=== PATIENT | male | born 1955 | race Caucasian/White ===

== ENCOUNTER 2025-03-28 16:47 | Inpatient (IN) | payer OTHER ==
[~2025-03-28] VITALS: Ht 182.9 cm; Wt 85.9 kg
[2025-03-28 17:44] LABS: Basophils # (auto) 0 10 ^3/uL (0-0.2); Basophils % (auto) 0.4 % (0.0-2.0); Eosinophils # (auto) 0 10 ^3/uL (0-0.8); Eosinophils % (auto) 0.2 % (0.0-7.0); Hematocrit 41.3 % (41.0-53.0); Lymphocytes # (auto) 0.8 10 ^3/uL (0.4-5.4); Lymphocytes % (auto) 6.9 % (10.0-50.0); Mean Corpuscular Hemoglobin 30.8 pg (28.0-32.0); Mean Corpuscular Hgb Conc. 33.9 g/dL (32.0-36.0); Monocytes # (auto) 0.7 10 ^3/uL (0-1.3); Monocytes % (auto) 5.9 % (0.0-12.0); Neutrophils # (auto) 9.9 10 ^3/uL (1.6-8.6); Neutrophils % (auto) 86.6 % (37.0-80.0); Platelet Count (auto) 183 10^3/uL (140-450); Red Blood Cells 4.54 10^6/uL (4.5-5.90); Red Cell Distribution Width 13.5 % (11.8-14.3); White Blood Cell 11.5 10^3/uL (4.4-10.8)
[2025-03-28 17:49] LABS: Anion Gap 8 (5-15); Calcium 9.7 mg/dL (8.7-10.4); Carbon Dioxide 26 mmol/L (20-31)
[2025-03-28 17:54] LABS: BUN/Creatinine Ratio 11.3 (10.0-20.0); Blood Urea Nitrogen 20 mg/dL (9-23); Chloride 113 mmol/L (98-107); Glucose 131 mg/dL (74-106); Potassium 5.1 mmol/L (3.5-5.1); Sodium 147 mmol/L (136-145)
--- NOTE | 2025-03-28 18:37 | DVH ---
EXAM: CT HEAD WITHOUT CONTRAST INDICATION: aloc EXAM DATE: 03/28/2025 05:57 PM COMPARISON: None TECHNIQUE: CT of the head without intravenous contrast. Radiation Dose Information: CTDI volume is 64.93 mGy. Dose-length product is 1040.66 mGy*cm FINDINGS: There is no evidence of acute intracranial hemorrhage, extra-axial collection, mass effect, midline s hift, herniation or hydrocephalus. The ventricles, sulci and cisterns are age appropriate. The gracia-w cody differentiation is intact. The visualized paranasal sinuses and mastoid air cells are clear. The surrounding soft tissues and osseous structures are unremarkable. IMPRESSION: 1. No evidence of acute intracranial hemorrhage, mass effect or hydrocephalus.
--- NOTE | 2025-03-28 19:44 | ED.PDOC ---
History of Present Illness HPI Comments This is a 69-year-old male who comes in with chief complaint of a syncopal episode. The patient wandered from his house and was found laying down in a neighbor's driveway. According to the neighbors, the patient may have been laying there for approximately 2 hours in the heat. He denies any chest pain, nausea, vomiting or shortness for breath. He just states that he is now feeling very weak and very hot. It is questionable if the patient has suffered head trauma but he does have abrasions to the forehead region. An IV Hep-Lock was established EN route. The patient was given normal saline because the patient's blood pressure was 80 systolic. EN route the patient was given a 1 L bolus of normal saline which brought the blood pressure to 101/73 Chief Complaint: Syncope Time Seen by MD: 16:51 Reviewed Notes: Nurses Notes, Shipfitters Supervisor Notes, Medications, Allergies (No all ergies to medications) Allergies: Coded Allergies: NO KNOWN ALLERGIES (Unverified , 03/28/25) Information Source: Patient, Emergency Med Personnel Mode of Arrival: EMS Severity: Moderate Timing: Hours Duration: Since onset Prehospital treatment: Accucheck (181), Telephone Worker, IVF Past Medical History PAST MEDICAL HISTORY: Cancer (Previous prostate cancer), Dementia Surgical History: Denies all surgeries Surgical History (Other): Hip surgery, prostate surgery, cataract surgery Family History Family History: No family hx of Cancer, No family hx of DM, No family hx of Heart mercedes Social History Smoker: Non-Smoker Alcohol: Denies ETOH Use Drugs: Denies Drug Use Lives In: Home Constitutional: reports: weakness, others (Hot to touch); denies: chills, diaphoresis, fatigue, fever, malaise, sweats EENTM: denies: blurred vision, double vision, ear bleeding, ear discharge, ear drainage, ear pain, ear ringing, eye pain, eye redness, hearing loss, mouth pain, mouth swelling, nasal discharge, nose bleeding, nose congestion, nose pain, photophobia, tearing, throat pain, throat swelling, voice changes, others Respiratory: denies: cough, hemoptysis, orthopnea, SOB at rest, shortness of breath, SOB with excertion, stridor, wheezing, others Cardiovascular: reports: syncope; denies: chest pain, dizzy spells, diaphoresis, Dyspnea on exertion, edema, irregular heart beat, left arm pain, lightheadedness, palpitations, PND, others Gastrointestinal: denies: abdomen distended, abdominal pain, blood streaked bowels, constipated, diarrhea, dysphagia, difficulty swallowing, hematemesis, melena, nausea, poor appetite, poor fluid intake, rectal bleeding, rectal pain, vomiting, others Genitourinary: denies: burning, dysuria, flank pain, frequency, hematuria, incontinence, penile discharge, penile sore, pain, testicle pain, testicle swelling, urgency, others Neurological: denies: dizziness, fainting, headache, left sided numbness, left sided weakness, numbness, paresthesia, pre-existing deficit, right sided numbness, right sided weakness, seizure, speech problems, tingling, tremors, weakness, others Musculoskeletal: denies: back pain, gout, joint pain, joint swelling, muscle pain, muscle stiffness, neck pain, others Integumetry: denies: bruises, change in color, change in hair/nails, dryness, laceration, lesions, lumps, rash, wounds, others Allergic/Immunocompromised: denies: Difficulty Healing, Frequent Infections, Hives, Itching, others Hematologic/Lymphatic: denies: anemia, blood clots, easy bleeding, easy bruising, swollen glands, others Endocrine: denies: excessive hunger, excessive sweating, excessive thirst, excessive urination, flushing, intolerance to cold, intolerance to heat, unexplained weight gain, unexplained weight loss, others Psychiatric: denies: anxiety, bipolar disorder, depression, hopeless, panic disorder, schizophrenia, sleepless, suicidal, others Physical Exam General Appearance: Moderate Distress HEENT: Normal ENT Inspection, Pharynx Normal, TMs Normal Neck: Full Range of Motion, Non-Tender, Normal, Normal Inspection Respiratory: Chest Non-Tender, Lungs Clear, No Accessory Muscle Use, No Respira tory Distress, Normal Breath Sounds Cardiovascular: No Edema, No JVD, No Murmur, No Gallop, Normal Peripheral Pulses, Tachycardia Breast Exam: Deferred Gastrointestinal: No Organomegaly, Non Tender, No Pulsatile Mass, Normal Bowel Sounds, Soft Genitalia: Deferred Pelvic: Deferred Rectal: Deferred Extremities: No calf tenderness, Normal capillary refill, Normal inspection, Normal range of motion, Non-tender, No pedal edema Musculoskeletal : Apperance: Normal Neurologic: Alert, freight flow sales leader II-XII nml as Tested, Motor Weakness, Normal Affect, Normal Mood, No Sensory Deficits Cerebellar Function: Unable to Test Reflexes: Normal Skin: Dry, Normal Color, Warm Lymphatic: No Adenopathy Was a procedure done? Was a procedure done?: No Differential Dx Considerations may include: Dehydration heat exhaustion, and stroke, electrolyte imbalance, generalized weakness X-Ray, Labs, Meds, VS Vital Signs Date Time Temp Pulse Resp B/P (MAP) Pulse Ox O2 Delivery O2 Flow Rate FiO2 03/28/25 17:08 98.5 102 18 101/73 (82) 96 98.5 Lab Test 03/28/25 17:23 Range/Units White Blood Count 11.5 H 4.4-10.8 10^3/uL Red Blood Count 4.54 4.5-5.90 10^6/uL Hemoglobin 14.0 13.5-17.5 g/dL Hematocrit 41.3 41.0-53.0 % Mean Corpuscular Volume 91.0 80.0-100.0 fL Mean Corpuscular Hemoglobin 30.8 28.0-32.0 pg Mean Corpuscular Hemoglobin Concent 33.9 32.0-36.0 g/dL Red Cell Distribution Width 13.5 11.8-14.3 % Platelet Count 183 140-450 10^3/uL Mean Platelet Volume 8.6 6.9-10.8 fL Neutrophils (%) (Auto) 86.6 H 37.0-80.0 % Lymphocytes (%) (Auto) 6.9 L 10.0-50.0 % Monocytes (%) (Auto) 5.9 0.0-12.0 % Eosinophils (%) (Auto) 0.2 0.0-7.0 % Basophils (%) (Auto) 0.4 0.0-2.0 % Neutrophils # (Auto) 9.9 H 1.6-8.6 10 ^3/uL Lymphocytes # (Auto) 0.8 0.4-5.4 10 ^3/uL Monocytes # (Auto) 0.7 0-1.3 10 ^3/uL Eosinophils # (Auto) 0 0-0.8 10 ^3/uL Basophils # (Auto) 0 0-0.2 10 ^3/uL Nucleated Red Blood Cells 0.0 % Sodium Level 147 H 136-145 mmol/L Potassium Level 5.1 3.5-5.1 mmol/L Chloride Level 113 H 98-107 mmol/L Carbon Dioxide Level 26 20-31 mmol/L Anion Gap 8 5-15 Blood Urea Nitrogen 20 9-23 mg/dL Creatinine 1.77 H 0.700-1.30 mg/dL Glomerular Filtration Rate Calc 41 >90 mL/min BUN/Creatinine Ratio 11.3 10.0-20.0 Serum Glucose 131 H 74-106 mg/dL Calcium Level 9.7 8.7-10.4 mg/dL Creatine Kinase MB Pending The patient's CBC shows an elevated white blood cell count 11.5 The rest of the CBC is within normal limits The chemistry panel is within normal limits. The patient continues to be somewhat dehydrated The patient is being admitted with a diagnosis of exhaustion and dehydration The CAT scan of the head shows: No sign of any abnormalities The patient is being admitted Images Reviewed?: Images reviewed and evaluated by me Time of 1ST Reevaluation: 19:41 Reevaluation 1ST: Unchanged Patient Education/Counseling: Diagnosis, Treatment, Prognosis Family Education/Counseling: No Family Present Departure 1 Departure Time of Disposition: 19:42 Impression: Primary Impression: Heat exhaustion Qualified Codes: T67.5XXA - Heat exhaustion, unspecified, initial encounter Additional Impressions: Episode of syncope Qualified Codes: R55 - Syncope and collapse Autonomic dysfunction Disposition: 09 ADMITTED INPATIENT Admit to: [facility] Condition: Fair Critical Care Note Critical Care Time?: Yes (45 min-critical care time only) Stability Stability form required: Yes Unstable for transfer: Telemetry monitoring (Telemetry monitoring required), ED Physician Assesment (Clinical assesment) Heart Score Heart Score: Heart Score Response (Comments) Value History N/A 0 EKG N/A 0 Age N/A 0 Risk Factors N/A 0 Troponin N/A 0 Total 0 KORINA BOYLE MD March 28, 2025 19:44
[2025-03-28] MEDS ORDERED: ACETAMINOPHEN 325 MG TAB PO PRN (21:00)
[2025-03-28] MEDS ORDERED: DOCUSATE SOD 100 MG CAP PO PRN (21:00)
--- NOTE | 2025-03-28 21:11 | DVHHP2 ---
History of Present Illness History of Present Illness Patient is 69 years old male with past medical history of carcinoma of the prostate status post prostatectomy was brought in due to syncope. Patient was brought in by EMS after he was found lying down of the neighbor's driveway likely for 2 hours. Patient's blood pressure was found systolic around 80s, patient was given normal saline 1 L IV. Patient denied any nausea or vomiting or dizziness before syncope. Also denied post syncopal bladder and bowel incontinence. As per patient's brother Emmanuel Sharif- [phone] patient has been forgetful lately, can not get back to his home once he is in the away from home. Patient recently had right upper eyelid ptosis, went to [facility], CT angio head and neck was negative. CT scan of the chest, abdomen and pelvis was negative. Patient Denied any chest pain, shortness of breath, dysuria, acute joint pain or swelling, dysarthria or change in vision. Initial lab workup revealed leukocytosis with WBC 11.5, neutrophil 86%, sodium 147, potassium 5.1, serum creatinine 1.77, GFR 41, BUN 20. CT head negative for acute intracranial abnormality. Past Medical History Carcinoma of the prostate Past Surgical History Prostatectomy Family History Dad had Alzheimer's disease, prostate problem Past Social History Patient lives alone, denies smoking/alcoholism/drug abuse Review of Systems Review of Systems Allergy- NKDA Patient was seen today at the bedside. Cardiovascular- deny acute chest pain or shortness of breath or cough or palpitation Respiratory denies cough or short of breath or wheezing Gastrointestinal- denies any rectal bleeding, nausea or vomiting Musculoskeletal-denies acute joint swelling or tenderness or redness Neurological- denies acute dysarthria, dysphagia, change in vision Psychiatry- denies depression or SI or HI Skin- denies acute rash or purpura Allergies: Coded Allergies: NO KNOWN ALLERGIES (Unverified , 03/28/25) Medications Current Medications Medications Dose Ordered Sig/Marie Route Start Time Stop Time Status Last Admin Dose Admin Sodium Chloride 10 ml Q8HR IV 03/28/25 22:00 Sodium Chloride 1,000 ml @ 120 mls/hr Q8H20M IV 03/28/25 21:00 Docusate Sodium 100 mg BIDPRN PRN PO 03/28/25 21:00 Enoxaparin Sodium 40 mg DAILY SC 03/29/25 10:00 Acetaminophen 650 mg Q6HP PRN PO 03/28/25 21:00 Atorvastatin Calcium 20 mg HS PO 03/29/25 22:00 Pantoprazole Sodium 40 mg DAILY@0600 PO 03/29/25 06:00 Exam Vital Signs Vital Signs Date Time Temp Pulse Resp B/P (MAP) Pulse Ox O2 Delivery O2 Flow Rate FiO2 03/28/25 17:08 98.5 102 18 101/73 (82) 96 98.5 Exam General examination- conversant, awake, not in acute HEENT- PEERLA-no acute nasal discharge Cardiovascular- S1-S2 audible, rate and rhythm regular, no murmur Respiratory- CTAB, no wheeze or rhonchi Gastrointestinal-nontender, bowel sound+. Nondistended Musculoskeletal-no acute joint swelling or tenderness or redness Lower extremity- no leg edema Neurological- right eyelid partial ptosis+ Psychiatry- denies depression or SI or HI Skin- no acute rash or purpura Labs/Xrays Labs Test 03/28/25 20:30 03/28/25 17:23 Range/Units White Blood Count 11.5 H 4.4-10.8 10^3/uL Red Blood Count 4.54 4.5-5.90 10^6/uL Hemoglobin 14.0 13.5-17.5 g/dL Hematocrit 41.3 41.0-53.0 % Mean Corpuscular Volume 91.0 80.0-100.0 fL Mean Corpuscular Hemoglobin 30.8 28.0-32.0 pg Mean Corpuscular Hemoglobin Concent 33.9 32.0-36.0 g/dL Red Cell Distribution Width 13.5 11.8-14.3 % Platelet Count 183 140-450 10^3/uL Mean Platelet Volume 8.6 6.9-10.8 fL Neutrophils (%) (Auto) 86.6 H 37.0-80.0 % Lymphocytes (%) (Auto) 6.9 L 10.0-50.0 % Monocytes (%) (Auto) 5.9 0.0-12.0 % Eosinophils (%) (Auto) 0.2 0.0-7.0 % Basophils (%) (Auto) 0.4 0.0-2.0 % Neutrophils # (Auto) 9.9 H 1.6-8.6 10 ^3/uL Lymphocytes # (Auto) 0.8 0.4-5.4 10 ^3/uL Monocytes # (Auto) 0.7 0-1.3 10 ^3/uL Eosinophils # (Auto) 0 0-0.8 10 ^3/uL Basophils # (Auto) 0 0-0.2 10 ^3/uL Nucleated Red Blood Cells 0.0 % Sodium Level 147 H 136-145 mmol/L Potassium Level 5.1 3.5-5.1 mmol/L Chloride Level 113 H 98-107 mmol/L Carbon Dioxide Level 26 20-31 mmol/L Anion Gap 8 5-15 Blood Urea Nitrogen 20 9-23 mg/dL Creatinine 1.77 H 0.700-1.30 mg/dL Glomerular Filtration Rate Calc 41 >90 mL/min BUN/Creatinine Ratio 11.3 10.0-20.0 Serum Glucose 131 H 74-106 mg/dL Calcium Level 9.7 8.7-10.4 mg/dL Assessment/Plan Assessment/Plan Assessment and plan Syncope likely due to vasovagal/orthostatic hypotension/TIA/cardiac arrhythmia Right eyelid partial ptosis, rule out stroke Metabolic encephalopathy likely due to heat exhaustion Heat exhaustion SIRS Suspected dementia Leukocytosis under evaluation RAZ likely due to VMN Hypernatremia likely due to dehydration Initial lab workup revealed leukocytosis with WBC 11.5, neutrophil 86%, sodium 147, potassium 5.1, serum creatinine 1.77, GFR 41, BUN 20. CT head negative for acute intracranial abnormality. Plan Ordered MRI of the brain to rule out acute stroke Ordered IV normal saline Pending urinalysis Ordered ammonia level Pending TSH, CMP Pending echo 2D, carotid Doppler Pending metallurgical or materials technician vitals Goals of care, Code status ; discussed with >15 minutes PUD prophylaxis: DVT prophylaxis: Lovenox Plan discussed with Dr. Alves , nursing staff, Total time spent on patient evaluation, chart review, assessment and plan, discussion discussion >35 minutes Plan discussed with: Patient, Other (Brother, RN) My Orders Orders - DANISH DUTTON RESIDENT Procedure Category Date Status Time Admit ADMIT 03/28/25 Transmitted 20:54 Code Status CODE 03/28/25 Transmitted 20:54 Sodium Chloride Lock PHA 03/28/25 In Process (Saline Lock Ns) 22:00 Sodium Chloride 0.9% PHA 03/28/25 In Process 21:00 Docusate Sodium PHA 03/28/25 In Process Capsule (Colace 21:00 Enoxaparin Sodium PHA 03/29/25 In Process (Lovenox) 10:00 Complete Blood Count LAB 03/29/25 Verified 04:00 Comprehensive LAB 03/29/25 Verified Metabolic Panel 04:00 Echo 2d Mode Cardiac US 03/28/25 Logged DOP 20:54 Carotid Duplx W Color US 03/28/25 Logged DOP 20:54 Acetaminophen Tablet PHA 03/28/25 In Process (Tylenol Tablet) 21:00 Notify Of Changes ONUR 03/28/25 In Process From Base 20:54 Rug Cleaner Helper For ONUR 03/28/25 In Process 24 Hours 20:54 Comprehensive LAB 03/28/25 Logged Metabolic Panel 21:01 Thyroid Stimulating LAB 03/28/25 In Process Hormone 21:01 Drug Screen LAB 03/28/25 Logged 21:01 Blood Alcohol LAB 03/28/25 Logged 21:01 Chest Xray 1 View XY 03/28/25 Logged 21:01 Orthostatic Vital ORDERS 03/28/25 Transmitted Signs 21:03 Atorvastatin (Lipitor) PHA 03/28/25 In Process 21:15 Atorvastatin (Lipitor) PHA 03/29/25 In Process 22:00 Pantoprazole Tablet PHA 03/28/25 In Process (Protonix Tablet) 21:15 Pantoprazole Tablet PHA 03/29/25 In Process (Protonix Tablet) 06:00 L Elbow 2 View Xray XY 03/28/25 Verified 21:08 Date of Service: March 28, 2025 Billing Provider: LEBA ALVES MD Common Visit Codes: [id number] INP/OBS CARE (HIGH) Secondary Visit Codes: [id number] CARE PLAN 30 MINUTES DANISH DUTTON RESIDENT March 28, 2025 21:11
[2025-03-28 21:12] LABS: Urine Bacteria FEW /hpf (None Seen); Urine Blood Negative /uL (Negative); Urine Clarity Clear (Clear); Urine Color Yellow (Yellow); Urine Hyaline Cast MOD /lpf (0 - 2); Urine Mucus FEW (None Seen); Urine Protein, UAD 1+ (Negative); Urine Specific Gravity 1.024 (1.001-1.035); Urine Squamous Epithelial Cell FEW /hpf (<5); Urine Urobilinogen 3 mg/dL (Negative); Urine WBC 3 /HPF (0-3)
[2025-03-28] MEDS: SODIUM CHLORIDE 0.9% 1,000 ML IV ONE (21:15)
[2025-03-28] MEDS: PANTOPRAZOLE 40 MG TAB PO ONE (21:15)
[2025-03-28] MEDS: ATORVASTATIN 20 MG TAB PO ONE (21:15)
[2025-03-28] MEDS: SODIUM CHLORIDE 0.9% 1,000 ML IV SCH (21:15)
[2025-03-28 21:39] LABS: Alanine Aminotransferase 39 U/L (7-40); Albumin 4.5 g/dL (3.2-4.8); Alkaline Phosphatase 92 U/L (46-116); Anion Gap 9 (5-15); Aspartate Aminotransferase 34 U/L (13-40); BUN/Creatinine Ratio 12.9 (10.0-20.0); Bilirubin, Total 0.5 mg/dL (0.2-1.0); Blood Urea Nitrogen 21 mg/dL (9-23); Calcium 9.8 mg/dL (8.7-10.4); Carbon Dioxide 25 mmol/L (20-31); Potassium 4.9 mmol/L (3.5-5.1); Sodium 144 mmol/L (136-145); Total Protein 6.9 g/dL (5.7-8.2)
[2025-03-28 21:43] VITALS: PULSE 74; RESP 13; O2SAT 98
[2025-03-28] MEDS: SODIUM CHLOR 0.9% PF (SALINE LOCK) 10ML VIAL/SYR IV SCH (21:48)
[2025-03-28 21:50] LABS: Blood Alcohol < 3.0 mg/dL (<10); Chloride 110 mmol/L (98-107); Glucose 110 mg/dL (74-106)
--- NOTE | 2025-03-28 21:51 | DVH ---
CHEST RADIOGRAPH Indication: PNA Technique: Single frontal view of the chest was obtained Comparison: None FINDINGS: Lines and Tubes: None Lungs: No focal consolidation. Pleura: No effusion. No pneumothorax. Cardiomediastinal contours: Unremarkable Bones: No acute osseous abnormality. IMPRESSION: 1. No acute cardiopulmonary disease.
--- NOTE | 2025-03-28 21:54 | DVH ---
CLINICAL INDICATION: RULED OUT FRACTURE TECHNIQUE: 2 radiographic views of the left elbow were obtained. Comparison: None FINDINGS/IMPRESSION: There is no evidence of acute fracture or dislocation. The visualized joint space is well maintained. The alignment is anatomical. There is no radiopaque foreign body.
[2025-03-28 22:16] LABS: Folate (Folic Acid) 18.89 ng/mL (>5.38)
--- NOTE | 2025-03-28 22:29 | DVH ---
Carotid Duplex Date: 03/28/2025 10:00 PM Clinical History: RULE OUT CAROTID ARTERY STENOSIS Comparison: None Technique: Duplex Doppler evaluation of the extracranial carotid and vertebral arteries including col or Doppler and spectral/pulsed waveform analysis was performed. Findings: RIGHT SIDE: The peak systolic velocities are 94 cm/s in the distal CCA and 85 cm/s in the proximal ICA.The ICA/CC A ratio is less than 1. The external carotid artery is patent with peak systolic velocity of 112 cm/s proximally. There is appropriate antegrade flow in the right vertebral artery. LEFT SIDE: The peak systolic velocities are 84 cm/s in the distal CCA and 109 cm/s in the proximal ICA.. The ICA /CCA ratio is less than 2. The external carotid artery is patent with peak systolic velocity of 119 cm/s proximally. There is appropriate antegrade flow in the left vertebral artery. IMPRESSION: 1. No hemodynamically significant stenosis noted in the right carotid system. 2. No hemodynamically significant stenosis noted in the left carotid system. 3. Reference: Radiology 2003; 229:340-346
[2025-03-29] VITALS (8 sets, daily range): BP systolic 103–114; BP diastolic 63–69; PULSE 52–86; RESP 16–19; TEMP 97.9–98; O2SAT 94–98
[2025-03-29] MEDS ORDERED: PANTOPRAZOLE 40 MG TAB PO SCH (06:00)
[2025-03-29 06:11] LABS: Basophils # (auto) 0 10 ^3/uL (0-0.2); Basophils % (auto) 0.4 % (0.0-2.0); Eosinophils # (auto) 0 10 ^3/uL (0-0.8); Eosinophils % (auto) 0.4 % (0.0-7.0); Hematocrit 38.4 % (41.0-53.0); Lymphocytes # (auto) 1.6 10 ^3/uL (0.4-5.4); Lymphocytes % (auto) 17.7 % (10.0-50.0); Mean Corpuscular Hemoglobin 30.7 pg (28.0-32.0); Mean Corpuscular Hgb Conc. 33.8 g/dL (32.0-36.0); Mean Corpuscular Volume 90.8 fL (80.0-100.0); Monocytes # (auto) 0.8 10 ^3/uL (0-1.3); Monocytes % (auto) 9.4 % (0.0-12.0); Neutrophils # (auto) 6.4 10 ^3/uL (1.6-8.6); Neutrophils % (auto) 72.1 % (37.0-80.0); Platelet Count (auto) 149 10^3/uL (140-450); Red Blood Cells 4.23 10^6/uL (4.5-5.90); Red Cell Distribution Width 13.6 % (11.8-14.3); White Blood Cell 8.8 10^3/uL (4.4-10.8)
[2025-03-29 06:29] LABS: Alanine Aminotransferase 33 U/L (7-40); Albumin 3.9 g/dL (3.2-4.8); Alkaline Phosphatase 80 U/L (46-116); Anion Gap 9 (5-15); Aspartate Aminotransferase 27 U/L (13-40); Carbon Dioxide 26 mmol/L (20-31); Creatine Kinase IFCC 149 U/L (46-171); Glucose 88 mg/dL (74-106); Potassium 4.5 mmol/L (3.5-5.1); Total Protein 5.8 g/dL (5.7-8.2)
[2025-03-29 06:30] LABS: Bilirubin, Total 0.7 mg/dL (0.2-1.0)
[2025-03-29 06:33] LABS: Blood Urea Nitrogen 24 mg/dL (9-23); Calcium 8.7 mg/dL (8.7-10.4); Chloride 111 mmol/L (98-107); Sodium 146 mmol/L (136-145)
[2025-03-29 07:06] LABS: Amphetamine Screen, Urine Neg (NEGATIVE); Barbiturate Scree,Urine Neg (NEGATIVE); Benzodiazephine Screen, Urine Neg (NEGATIVE); Cannabinoid Screen, Urine Neg (NEGATIVE); Cocaine Screen, Urine Neg (NEGATIVE); Opiate Scree,Urine Neg (NEGATIVE); Phencyclidine Screen, Urine Neg (NEGATIVE)
[2025-03-29 07:27] LABS: Protein, Urine 37.5 mg/dL (1-14)
[2025-03-29] MEDS ORDERED: DEXTROSE (50%) 50ML SYRG IV ONE (07:30)
[2025-03-29] MEDS ORDERED: CALCIUM GLUC 1,000mg/50ml-NS 50 ML IV ONE (07:30)
[2025-03-29] MEDS ORDERED: SODIUM BICARB 8.4% 50Meq/50ml SYR INJ IV ONE (07:30)
[2025-03-29] MEDS ORDERED: InsuLIN REG 1unit/0.01ml Soln (100units/ml) IV ONE (07:30)
[2025-03-29] MEDS ORDERED: FUROSEMIDE 20 MG/2 ML VIAL IV ONE (07:30)
[2025-03-29] MEDS ORDERED: SODIUM ZIRCONIUM CYCL 10 GM PAK PO ONE (07:30)
[2025-03-29] MEDS: ALBUTEROL SULF 2.5 MG/0.5ML(0.5%) NEB SOLN NEB ONE (07:36)
[2025-03-29 07:38] LABS: Urine Protein/Creatinine Ratio 0.12
[2025-03-29 07:39] LABS: Creatinine, Urine 302.29 mg/dL (30.0-125.0)
[2025-03-29] MEDS: ENOXAPARIN SOD 40 MG/0.4 ML SYRINGE SC SCH (09:24)
--- NOTE | 2025-03-29 09:52 | DVH ---
EXAMINATION: MRI BRAIN HEAD WO CONTRAST INDICATION: Rule out acute stroke COMPARISON: CT head 03/28/2025 TECHNIQUE: Multiplanar, multisequence magnetic resonance imaging of the brain was performed without t he use of intravenous contrast. FINDINGS: There is no restricted diffusion. There are minimal scattered chronic small-vessel ischemic changes i n the supratentorial white matter. There is no evidence of hemorrhage, mass, mass effect or midline s hift. There is no hydrocephalus or extra-axial fluid collection. The visualized intracranial vasculat ure demonstrates appropriate flow-voids. The sagittal midline structures appear unremarkable. The diesel locomotive crane operator niocervical junction is within normal limits. The calvarium demonstrates normal marrow signal. The pa ranasal sinuses and mastoid air cells are clear. IMPRESSION: 1. There is no acute intracranial process. HS:Y
[2025-03-29] MEDS: HALOPERIDOL LACTATE 5 MG/ML INJ VIAL ONE (11:24)
[2025-03-29] MEDS: HALOPERIDOL LACTATE 5 MG/ML INJ VIAL IM ONE (11:30)
--- NOTE | 2025-03-29 15:28 | DVHPNRES ---
Progress Note Date Seen: March 29, 2025 Resident Creating Document: ALFRED MELCHOR RESIDENT Medical Necessity Reason Pt with a Central, PICC or Fol: No Subjective Review of Systems Patient is a 69 years old male with a past medical history of carcinoma prostate status post resection was brought to the ED via EMS after he was found in the neighbor's driveway. Patient's systolic blood pressure was found to be around 80s and he was given 1 L IV normal saline. Patient reported vague history and he said he was out in the "looking out after his property" but because of the extreme heat he started feeling dizzy and then fell down. No bowel or bladder incontinence. As per the patient's brother Emmanuel Sharif patient has been forgetful lately, can not get back to his home once he is out, has functional decline. He recently also had right eye ptosis and went to [facility] where they did a CT angio head and neck which was negative, CT chest abdomen pelvis was negative with the patient was started on pyridostigmine. Past medical history: Past surgical history: Social history: Home medications: Review of systems Patient is seen and examined at the bedside Patient alert and oriented to time, person but disoriented to place and does not know why he is in the hospital He is having delusions , difficulty finding words for speech Denies any headache, blurred vision, abdominal pain, pain in any other extremities Objective vital signs Vital Sign Date Time Temp Pulse Resp B/P (MAP) Pulse Ox O2 Delivery O2 Flow Rate FiO2 03/29/25 12:00 98.1 112 21 144/53 (83) 97 98.1 03/29/25 11:31 Room Air* 0 21 Total Intake and Output 03/28/25 03/28/25 03/29/25 15:00 23:00 07:00 Intake Total 1120 ml 960 ml Balance 1120 ml 960 ml medications Current Medications Medications Dose Ordered Sig/Marie Route Start Time Stop Time Status Last Admin Dose Admin Sodium Chloride 10 ml Q8HR IV 03/28/25 22:00 03/29/25 09:24 10 ML Docusate Sodium 100 mg BIDPRN PRN PO 03/28/25 21:00 Enoxaparin Sodium 40 mg DAILY SC 03/29/25 10:00 03/29/25 09:24 40 MG Acetaminophen 650 mg Q6HP PRN PO 03/28/25 21:00 Atorvastatin Calcium 20 mg HS PO 03/29/25 22:00 Examination Gen - no pallor, no icterus, no cyanosis, no clubbing, no LAD, no edema . Skin - Patients skin is warm and dry. HEENT - normocephalic, atraumatic, dry mucous membranes. Neck - full ROM, no LAD, no JVD Pulmonary - B/L equal breath sounds, no crackles, no wheezing, no stridor. cardiovascular - regular S1,S2 heard, no added sounds, no murmurs heard. peripheral pulses normal radial 2+, pedal 2+. capillary refill normal <2 secs. GI - soft, nontender abdomen. no hepatospleenomegaly. Bowel sounds normoactive Neurological - Patient is A/O X 2 . Bilateral upper extremity strength 5/5, bilateral lower extremity strength 5/5, no facial droop, normal speech, no tremor, no sensory deficiets. Right eye ptosis laboratory and microbiology Laboratory Tests 03/29/25 05:30 Test 03/29/25 05:30 Range/Units Serum Glucose 88 74-106 mg/dL Problem List/Assessment/Plan Problem List/Assessment/Plan Syncope likely vasovagal ? Rule out neurological/cardiac cause Heat exhaustion SIRS likely due to above - head CT showed no acute intracranial abnormality - MRI brain showed no acute intracranial process - carotid Doppler showed no hemodynamically significant stenosis of the bilateral carotid systems - patient given IV fluids - echocardiogram pending Acute metabolic encephalopathy likely due to heat exhaustion Possible dementia with underlying Alzheimer's disease Possible myasthenia gravis - patient is following up with the neurologist in the outpatient clinic - ptosis of the right eye with the patient being on pyridostigmine - IV fluids RAZ on CKD likely due to be VMN Hypernatremia - free water deficit 1.8 L - FeNa 0.2% - IV fluids H/o Hyperlipidemia - on atorvastatin DVT prophylaxis: Enoxaparin Goals of care discussed with the patient and his brother Emmanuel for over 27 minutes. Full code Time spent: 43 minutes Plan discussed with Dr. Anguiano Plan discussed with: Patient, Other (Brother Emmanuel) Date of Service: March 29, 2025 Billing Provider: ENDY ANGUIANO MD Common Visit Codes: [id number] INP/OBS CARE(HIGH) Date of Service: March 29, 2025 Billing Provider: ENDY ANGUIANO MD Common Visit Codes: [id number] INP/OBS CARE(HIGH) ALFRED MELCHOR RESIDENT March 29, 2025 15:28 ENDY ANGUIANO MD March 29, 2025 17:58
[2025-03-29] MEDS ORDERED: ESCI10TA PO (17:24)
[2025-03-29] MEDS ORDERED: IBU600T PO (17:24)
[2025-03-29] MEDS ORDERED: ATOR20TA50 PO (17:24)
[2025-03-29] MEDS ORDERED: ALL300T PO (17:24)
[2025-03-29] MEDS: D5W/SOD CHL 0.45% 1,000 ML IV ONE (19:30)
[2025-03-29] MEDS: LORazepam 2MG/ML-1ML VIAL IV ONE (22:00)
[2025-03-29] MEDS: ATORVASTATIN 20 MG TAB PO SCH (22:00)
[2025-03-30] VITALS (7 sets, daily range): BP systolic 97–155; BP diastolic 64–89; PULSE 61–77; RESP 14–20; TEMP 97.9–99.3; O2SAT 94–98
[2025-03-30] MEDS: LORazepam 2MG/ML-1ML VIAL IV ONE (03:47)
[2025-03-30 07:30] LABS: Basophils # (auto) 0 10 ^3/uL (0-0.2); Basophils % (auto) 0.2 % (0.0-2.0); Eosinophils # (auto) 0 10 ^3/uL (0-0.8); Eosinophils % (auto) 0.2 % (0.0-7.0); Hematocrit 36.5 % (41.0-53.0); Hemoglobin 12.4 g/dL (13.5-17.5); Lymphocytes # (auto) 0.8 10 ^3/uL (0.4-5.4); Lymphocytes % (auto) 11.7 % (10.0-50.0); Mean Corpuscular Hemoglobin 30.6 pg (28.0-32.0); Mean Corpuscular Hgb Conc. 34.1 g/dL (32.0-36.0); Mean Corpuscular Volume 89.7 fL (80.0-100.0); Monocytes # (auto) 0.5 10 ^3/uL (0-1.3); Monocytes % (auto) 7.6 % (0.0-12.0); Neutrophils # (auto) 5.8 10 ^3/uL (1.6-8.6); Neutrophils % (auto) 80.3 % (37.0-80.0); Platelet Count (auto) 153 10^3/uL (140-450); Red Blood Cells 4.06 10^6/uL (4.5-5.90); Red Cell Distribution Width 13.5 % (11.8-14.3); White Blood Cell 7.2 10^3/uL (4.4-10.8)
[2025-03-30 07:39] LABS: Anion Gap 9 (5-15); Carbon Dioxide 23 mmol/L (20-31); Potassium 4.3 mmol/L (3.5-5.1)
[2025-03-30 07:41] LABS: Calcium 9.7 mg/dL (8.7-10.4)
[2025-03-30 07:44] LABS: Chloride 114 mmol/L (98-107); Sodium 146 mmol/L (136-145)
[2025-03-30 07:45] LABS: BUN/Creatinine Ratio 16.8 (10.0-20.0); Blood Urea Nitrogen 16 mg/dL (9-23); Glucose 95 mg/dL (74-106)
[2025-03-30] MEDS: D5W 5% 1,000 ML IV ONE (09:00)
[2025-03-30] MEDS ORDERED: HALOPERIDOL LACTATE 5 MG/ML INJ VIAL IM PRN (11:30)
--- NOTE | 2025-03-30 11:50 | DVHSR ---
APPROVED REPORT EXAM: Two-dimensional and M-mode echocardiogram with Doppler and color Doppler. Blood Pressure: 128/66 mmHg INDICATION Syncope RISK FACTORS Height: 6', Weight: 189 DIMENSIONS LVDd4.0 (3.8-5.7cm)LA (2D)4.7 (1.9-4.0cm)Aortic Root3.9 (2.0-3.7cm) LVDs1.8 (2.5-4.0cm)LA (MM) (1.9-4.0cm)Aortic Cusp Exc2.4 (1.5-2.0cm) EF (%) 86.0 (55-70%)Rt. Atrium4.0 (1.9-4.0cm)Asc. Aorta3.9 cm IVSd1.3 (0.7-1.1cm)RV (D)4.0 (1.8-2.4cm) PWd0.9 (0.7-1.1cm) Mitral Valve MitralMitral Stenosis E/A ratio0.02D MVAcm2 Aortic Valve Aortic ValveAortic Stenosis V11.71m/Coni Mean GR.9mmHg V21.87m/Coni Peak GR.14mmHg LVOT Diameter2.5 (1.8-2.4cm)Doppler AVA4.49cm2 Pulmonic Valve V21.05m/s Conclusion lvef 75% by visual estimate hyperdynamic LV milld to moderate LVH normal RV function normal atria no severe valve abnormalities noted limited study
[2025-03-30] MEDS: LOSARTAN POTASSIUM 25 MG TAB PO ONE (12:30)
[2025-03-30] MEDS: LOSARTAN POTASSIUM 50 MG TAB PO ONE (20:33)
[2025-03-30] MEDS: QUEtiapine FUMARATE 25 MG TAB PO SCH (20:47)
--- NOTE | 2025-03-30 22:43 | DVHPNRES ---
Progress Note Date Seen: March 30, 2025 Resident Creating Document: NINAALFRED LARSON RESIDENT Medical Necessity Reason Pt with a Central, PICC or Fol: No Subjective Review of Systems Patient seen and examined with the his brother Emmanuel and nephews at bedside Overnight patient was agitated and had to be put in 3 point soft restraint On assessment patient was A&O x2 and is confused and delusional but is able to follow commands Objective vital signs Vital Sign Date Time Temp Pulse Resp B/P (MAP) Pulse Ox O2 Delivery O2 Flow Rate FiO2 03/30/25 20:33 145/75 03/30/25 17:00 98.2 61 14 95 98.2 03/30/25 08:00 Room Air* 0 21 Total Intake and Output 03/29/25 03/29/25 03/30/25 15:00 23:00 07:00 Intake Total 720 ml 0 ml Balance 720 ml 0 ml medications Current Medications Medications Dose Ordered Sig/Marie Route Start Time Stop Time Status Last Admin Dose Admin Sodium Chloride 10 ml Q8HR IV 03/28/25 22:00 03/30/25 20:47 10 ML Enoxaparin Sodium 40 mg DAILY SC 03/29/25 10:00 03/30/25 10:00 40 MG Acetaminophen 650 mg Q6HP PRN PO 03/28/25 21:00 Atorvastatin Calcium 20 mg HS PO 03/29/25 22:00 03/30/25 20:47 20 MG Quetiapine Fumarate 25 mg HS PO 03/30/25 22:00 03/30/25 20:47 25 MG Haloperidol Lactate 2.5 mg Q6HP PRN IM 03/30/25 12:30 Losartan Potassium 50 mg DAILY PO 03/31/25 10:00 Amlodipine Besylate 5 mg DAILY PO 03/31/25 10:00 Examination Gen - no pallor, no icterus, no cyanosis, no clubbing, no LAD, no edema . Skin - Patients skin is warm and dry. HEENT - normocephalic, atraumatic, dry mucous membranes. Neck - full ROM, no LAD, no JVD Pulmonary - B/L equal breath sounds, no crackles, no wheezing, no stridor. cardiovascular - regular S1,S2 heard, no added sounds, no murmurs heard. peripheral pulses normal radial 2+, pedal 2+. capillary refill normal <2 secs. GI - soft, nontender abdomen. no hepatospleenomegaly. Bowel sounds normoactive Neurological - Patient is A/O X 2 . Bilateral upper extremity strength 5/5, bilateral lower extremity strength 5/5, no facial droop, normal speech, no tremor, no sensory deficiets. Right eye ptosis laboratory and microbiology Laboratory Tests 03/30/25 06:21 Test 03/30/25 06:21 Range/Units Serum Glucose 95 74-106 mg/dL Microbiology Date/Time Source Procedure Growth Status 03/29/25 17:31 Nose MRSA Screen - Final Complete Problem List/Assessment/Plan Problem List/Assessment/Plan Syncope likely vasovagal ? Rule out neurological/cardiac cause Heat exhaustion SIRS likely due to above - head CT showed no acute intracranial abnormality - MRI brain showed no acute intracranial process - carotid Doppler showed no hemodynamically significant stenosis of the bilateral carotid systems - patient given IV fluids - echocardiogram pending Acute metabolic encephalopathy likely due to heat exhaustion Possible dementia with underlying Alzheimer's disease Possible myasthenia gravis - patient is following up with the neurologist in the outpatient clinic - ptosis of the right eye with the patient being on pyridostigmine - IV fluids - Seroquel at night and Haldol 2.5 mg q.6 p.r.n. 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 Full code Time spent: 47 minutes Plan discussed with Dr. Parisi Plan discussed with: Patient My Orders My Orders Orders - ALFRED MELCHOR RESIDENT Procedure Category Date Status Time Urine Bacterial APRYL 03/30/25 In Process Culture 10:54 Quetiapine Fumarate PHA 03/30/25 In Process Tablet (Seroquel Tab 22:00 Haloperidol Lactate PHA 03/30/25 In Process Injection (Haldol) 12:30 Non-Behavioral ED NURSING 03/30/25 Transmitted Restraints 15:00 Losartan Tablet PHA 03/31/25 In Process (Cozaar Tablet) 10:00 Amlodipine Tablet PHA 03/31/25 In Process (Norvasc Tablet) 10:00 Cover Wound With Foam ONUR 03/30/25 In Process Dressing 18:56 D5w/Sod Chl 0.45% 1/2 PHA 03/30/25 Transmitted NS 22:45 Date of Service: March 30, 2025 Billing Provider: ENDY PARISI MD Common Visit Codes: [id number] INP/OBS CARE(HIGH) ALFRED MELCHOR RESIDENT March 30, 2025 22:43 ENDY PARISI MD March 30, 2025 22:45
[2025-03-30] MEDS: D5W/SOD CHL 0.45% 1,000 ML IV ONE (23:37)
[2025-03-31] VITALS (8 sets, daily range): BP systolic 108–165; BP diastolic 63–83; PULSE 58–85; RESP 16–20; TEMP 98–98.5; O2SAT 85–98
[2025-03-31] MEDS: HALOPERIDOL LACTATE 5 MG/ML INJ VIAL IM PRN (03:48)
[2025-03-31 08:46] LABS: Basophils # (auto) 0 10 ^3/uL (0-0.2); Basophils % (auto) 0.2 % (0.0-2.0); Eosinophils # (auto) 0 10 ^3/uL (0-0.8); Eosinophils % (auto) 0.3 % (0.0-7.0); Hematocrit 36.4 % (41.0-53.0); Hemoglobin 12.5 g/dL (13.5-17.5); Lymphocytes # (auto) 0.8 10 ^3/uL (0.4-5.4); Lymphocytes % (auto) 12.1 % (10.0-50.0); Mean Corpuscular Hemoglobin 31.1 pg (28.0-32.0); Mean Corpuscular Hgb Conc. 34.3 g/dL (32.0-36.0); Mean Corpuscular Volume 90.5 fL (80.0-100.0); Monocytes # (auto) 0.6 10 ^3/uL (0-1.3); Neutrophils # (auto) 5.3 10 ^3/uL (1.6-8.6); Neutrophils % (auto) 78.4 % (37.0-80.0); Platelet Count (auto) 148 10^3/uL (140-450); Red Blood Cells 4.02 10^6/uL (4.5-5.90); Red Cell Distribution Width 13.4 % (11.8-14.3); White Blood Cell 6.8 10^3/uL (4.4-10.8)
[2025-03-31 08:56] LABS: Potassium 3.8 mmol/L (3.5-5.1); Sodium 142 mmol/L (136-145)
[2025-03-31 08:57] LABS: Anion Gap 9 (5-15); Carbon Dioxide 23 mmol/L (20-31)
[2025-03-31 08:58] LABS: Calcium 9.3 mg/dL (8.7-10.4)
[2025-03-31 09:00] LABS: Chloride 110 mmol/L (98-107)
[2025-03-31 09:03] LABS: Blood Urea Nitrogen 11 mg/dL (9-23)
[2025-03-31 09:09] LABS: Glucose 111 mg/dL (74-106)
[2025-03-31] MEDS: amLODIPine BESYLATE 5 MG TAB PO SCH (10:00)
[2025-03-31] MEDS: LOSARTAN POTASSIUM 50 MG TAB PO SCH (10:00)
[2025-03-31] MEDS ORDERED: hydrALAZINE HCL 20 MG/ML VL IV ONE (12:00)
[2025-03-31] MEDS ORDERED: hydrALAZINE HCL 20 MG/ML VL IV PRN (12:00)
[2025-03-31] MEDS: D5W/SOD CHL 0.45% 1,000 ML IV ONE ×2 (12:39→19:00)
--- NOTE | 2025-03-31 18:47 | DVHPNRES ---
Progress Note Date Seen: March 31, 2025 Resident Creating Document: ALFRED MELCHOR RESIDENT Medical Necessity Reason Pt with a Central, PICC or Fol: No Subjective Review of Systems Patient seen and examined with the his brother Rolanda and nephews at bedside Overnight patient was agitated and had to be put in 3 point soft restraint On assessment patient was A&O x1 and is confused and delusional but is able to follow commands Objective vital signs Vital Sign Date Time Temp Pulse Resp B/P (MAP) Pulse Ox O2 Delivery O2 Flow Rate FiO2 03/31/25 16:41 98.5 58 16 124/64 (84) 93 98.5 03/31/25 08:00 Room Air* 0 21 Total Intake and Output 03/30/25 03/30/25 03/31/25 15:00 23:00 07:00 Intake Total 840 ml 600 ml Output Total 1150 ml 1400 ml Balance -310 ml -800 ml medications Current Medications Medications Dose Ordered Sig/Marie Route Start Time Stop Time Status Last Admin Dose Admin Sodium Chloride 10 ml Q8HR IV 03/28/25 22:00 03/30/25 23:38 10 ML Enoxaparin Sodium 40 mg DAILY SC 03/29/25 10:00 03/30/25 10:00 40 MG Acetaminophen 650 mg Q6HP PRN PO 03/28/25 21:00 Atorvastatin Calcium 20 mg HS PO 03/29/25 22:00 03/30/25 20:47 20 MG Haloperidol Lactate 2.5 mg Q6HP PRN IM 03/30/25 12:30 03/31/25 03:48 2.5 MG Losartan Potassium 50 mg DAILY PO 03/31/25 10:00 Amlodipine Besylate 5 mg DAILY PO 03/31/25 10:00 Hydralazine HCl 10 mg Q6HP PRN IV 03/31/25 12:00 Quetiapine Fumarate 50 mg HS PO 03/31/25 22:00 Examination Gen - no pallor, no icterus, no cyanosis, no clubbing, no LAD, no edema . Skin - Patients skin is warm and dry. HEENT - normocephalic, atraumatic, dry mucous membranes. Neck - full ROM, no LAD, no JVD Pulmonary - B/L equal breath sounds, no crackles, no wheezing, no stridor. cardiovascular - regular S1,S2 heard, no added sounds, no murmurs heard. peripheral pulses normal radial 2+, pedal 2+. capillary refill normal <2 secs. GI - soft, nontender abdomen. no hepatospleenomegaly. Bowel sounds normoactive Neurological - Patient is A/O X 2 . Bilateral upper extremity strength 5/5, bilateral lower extremity strength 5/5, no facial droop, normal speech, no tremor, no sensory deficiets. Right eye ptosis laboratory and microbiology Laboratory Tests 03/31/25 08:37 Test 03/31/25 08:37 Range/Units Serum Glucose 111 H 74-106 mg/dL Microbiology Date/Time Source Procedure Growth Status 03/30/25 15:15 Voided Urine Urine Culture - Preliminary Resulted 03/29/25 17:31 Nose MRSA Screen - Final Complete Problem List/Assessment/Plan Problem List/Assessment/Plan Syncope likely vasovagal ? Rule out neurological/cardiac cause Heat exhaustion SIRS likely due to above - head CT showed no acute intracranial abnormality - MRI brain showed no acute intracranial process - carotid Doppler showed no hemodynamically significant stenosis of the bilateral carotid systems - patient given IV fluids Acute metabolic encephalopathy likely due to heat exhaustion Possible dementia with underlying Alzheimer's disease Possible myasthenia gravis - patient is following up with the neurologist in the outpatient clinic - ptosis of the right eye with the patient being on pyridostigmine - IV fluids - Seroquel at night and Haldol 2.5 mg q.6 p.r.n. 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 the patient is not able to take oral - on atorvastatin DVT prophylaxis: Enoxaparin Goals of care discussed with the patient and his brother Rolanda for over 23 minutes. Full code Time spent: 39 minutes Plan discussed with Dr. Parisi Plan discussed with: Other (Brother rolanda, NARAYAN Nae) My Orders My Orders Orders - ALFRED MELCHOR RESIDENT Procedure Category Date Status Time Urine Bacterial APRYL 03/30/25 In Process Culture 10:54 Cover Wound With Foam ONUR 03/30/25 In Process Dressing 18:56 Hydralazine Injection PHA 03/31/25 In Process (Apresoline Inject 12:00 Quetiapine Fumarate PHA 03/31/25 In Process Tablet (Seroquel Tab 22:00 D5w/Sod Chl 0.45% PHA 03/31/25 In Process (D5w 1/2ns) 12:30 Non-Behavioral ED NURSING 03/31/25 Transmitted Restraints 15:00 Date of Service: March 31, 2025 Billing Provider: ENDY PARISI MD Common Visit Codes: [id number] INP/OBS CARE(HIGH) ALFRED MELCHOR RESIDENT March 31, 2025 18:47 ENDY PARISI MD April 01, 2025 05:19
[2025-03-31] MEDS: QUEtiapine FUMARATE 25 MG TAB PO SCH (21:11)
[2025-04-01] VITALS (7 sets, daily range): BP systolic 87–148; BP diastolic 51–84; PULSE 60–84; RESP 16–20; TEMP 97.6–99.7; O2SAT 95–98
[2025-04-01 09:54] LABS: Basophils # (auto) 0 10 ^3/uL (0-0.2); Basophils % (auto) 0.2 % (0.0-2.0); Eosinophils # (auto) 0 10 ^3/uL (0-0.8); Eosinophils % (auto) 0.6 % (0.0-7.0); Hematocrit 35.8 % (41.0-53.0); Hemoglobin 12.3 g/dL (13.5-17.5); Lymphocytes # (auto) 0.9 10 ^3/uL (0.4-5.4); Lymphocytes % (auto) 13.2 % (10.0-50.0); Mean Corpuscular Hemoglobin 30.8 pg (28.0-32.0); Mean Corpuscular Hgb Conc. 34.4 g/dL (32.0-36.0); Mean Corpuscular Volume 89.6 fL (80.0-100.0); Monocytes # (auto) 0.8 10 ^3/uL (0-1.3); Monocytes % (auto) 11.7 % (0.0-12.0); Neutrophils # (auto) 5.2 10 ^3/uL (1.6-8.6); Neutrophils % (auto) 74.3 % (37.0-80.0); Platelet Count (auto) 163 10^3/uL (140-450); Red Cell Distribution Width 13.3 % (11.8-14.3); White Blood Cell 7.1 10^3/uL (4.4-10.8)
[2025-04-01 10:03] LABS: Sodium 144 mmol/L (136-145)
[2025-04-01 10:04] LABS: Anion Gap 9 (5-15); Calcium 9.4 mg/dL (8.7-10.4); Carbon Dioxide 23 mmol/L (20-31)
[2025-04-01 10:09] LABS: BUN/Creatinine Ratio 12.5 (10.0-20.0); Blood Urea Nitrogen 12 mg/dL (9-23)
[2025-04-01 10:11] LABS: Phosphorus 4.2 mg/dL (2.4-5.1)
[2025-04-01] MEDS: LIDOCAINE 2% JELLY 11ml (GLYDO) UR ONE (10:15)
[2025-04-01 10:16] LABS: Chloride 112 mmol/L (98-107); Glucose 125 mg/dL (74-106); Potassium 3.4 mmol/L (3.5-5.1)
[2025-04-01] MEDS: SODIUM CHLORIDE 0.9% 500 ML IV ONE (11:27)
[2025-04-01] MEDS: POTASSIUM CHL 20 Meq TABLET PO ONE (14:26)
[2025-04-01] MEDS: TUBERCULIN PPD 5 UNIT/0.1 ML ID ONE (15:06)
--- NOTE | 2025-04-01 15:31 | DVHPNRES ---
Progress Note Date Seen: April 01, 2025 Resident Creating Document: ALFRED MELCHOR RESIDENT Medical Necessity Reason Pt with a Central, PICC or Fol: No Subjective Review of Systems Patient seen and examined at the bedside Overnight because of the loose restrained patient tried to pull out his Bradford following then he started to have bleeding in the Bradford's catheter and no urinary flow. Urology was consulted who recommended putting a coude Bradford catheter, inserted successfully and urine flow without any clots or blood noted Patient continues to be disoriented and agitative Objective vital signs Vital Sign Date Time Temp Pulse Resp B/P (MAP) Pulse Ox O2 Delivery O2 Flow Rate FiO2 04/01/25 13:07 97.9 74 20 148/82 (104) 96 97.9 04/01/25 08:00 Room Air* 0 21 Total Intake and Output 03/31/25 03/31/25 04/01/25 15:00 23:00 07:00 Intake Total 600 ml 500 ml Output Total 1800 ml 800 ml Balance -1200 ml -300 ml medications Current Medications Medications Dose Ordered Sig/Marie Route Start Time Stop Time Status Last Admin Dose Admin Sodium Chloride 10 ml Q8HR IV 03/28/25 22:00 04/01/25 14:26 10 ML Enoxaparin Sodium 40 mg DAILY SC 03/29/25 10:00 03/30/25 10:00 40 MG Acetaminophen 650 mg Q6HP PRN PO 03/28/25 21:00 Atorvastatin Calcium 20 mg HS PO 03/29/25 22:00 03/30/25 20:47 20 MG Haloperidol Lactate 2.5 mg Q6HP PRN IM 03/30/25 12:30 03/31/25 21:09 2.5 MG Losartan Potassium 50 mg DAILY PO 03/31/25 10:00 Amlodipine Besylate 5 mg DAILY PO 03/31/25 10:00 Hydralazine HCl 10 mg Q6HP PRN IV 03/31/25 12:00 Quetiapine Fumarate 50 mg HS PO 03/31/25 22:00 Examination Gen - no pallor, no icterus, no cyanosis, no clubbing, no LAD, no edema . Skin - Patients skin is warm and dry. HEENT - normocephalic, atraumatic, dry mucous membranes. Right eye ptosis Neck - full ROM, no LAD, no JVD Pulmonary - B/L equal breath sounds, no crackles, no wheezing, no stridor. cardiovascular - regular S1,S2 heard, no added sounds, no murmurs heard. peripheral pulses normal radial 2+, pedal 2+. capillary refill normal <2 secs. GI - soft, nontender abdomen. no hepatosplenomegaly. Bowel sounds normoactive Neurological - Patient is A/O X 2 . Agitated and confused. Bilateral upper extremity strength 5/5, bilateral lower extremity strength 5/5, no facial droop, normal speech, no tremor. Right eye ptosis laboratory and microbiology Laboratory Tests 04/01/25 09:24 Test 04/01/25 09:24 Range/Units Serum Glucose 125 H 74-106 mg/dL Microbiology Date/Time Source Procedure Growth Status 03/30/25 15:15 Voided Urine Urine Culture - Preliminary Resulted 03/29/25 17:31 Nose MRSA Screen - Final Complete Labs and/or images reviewed: Labs reviewed by me, Image(s) reviewed by me Problem List/Assessment/Plan Problem List/Assessment/Plan Syncope likely vasovagal ? Rule out neurological/cardiac cause Heat exhaustion SIRS likely due to above - head CT showed no acute intracranial abnormality - MRI brain showed no acute intracranial process - carotid Doppler showed no hemodynamically significant stenosis of the bilateral carotid systems - patient given IV fluids Acute metabolic encephalopathy likely due to heat exhaustion Possible dementia with underlying Alzheimer's disease Possible myasthenia gravis - patient is following up with the neurologist in the outpatient clinic - ptosis of the right eye with the patient being on pyridostigmine - IV fluids - Seroquel at night and Haldol 2.5 mg q.6 p.r.n. 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 the patient is not able to take oral - on atorvastatin DVT prophylaxis: Enoxaparin Plan discussed with Dr. Grissom Plan discussed with: Other (NARAYAN Soni) My Orders My Orders Orders - ALFRED MELCHOR RESIDENT Procedure Category Date Status Time * Urology Consult CONS 04/01/25 Transmitted 08:46 Communication Order ORDERS 04/01/25 Transmitted 13:58 Addendum Addendum Addendum I was physically present for the chowdhury portions of the service provided to patient by THE RESIDENT. I have reviewed the documentation, discussed the case with resident and agree with the resident's documentation except as noted. Also the patient's clinical case was discussed with the patient's nurse. This medical document was created using an electronic medical record system with computerized dictation system. Although this document has been carefully reviewed, there might still be some phonetic and typographical errors. These areas are purely typographical due to imperfections of the software programs, and do not reflect any compromise in the patient's medical care. Late signature. Date of Service: April 01, 2025 Billing Provider: KHARI GRISSOM MD Common Visit Codes: [id number] INP/OBS CARE(HIGH) ALFRED MELCHOR RESIDENT April 01, 2025 15:31 KHARI GRISSOM MD Apr 02, 2025 13:12
[2025-04-02 04:56] VITALS: BP 137/75; PULSE 57; RESP 18; TEMP 99.2; O2SAT 97
[2025-04-02 06:12] LABS: Basophils # (auto) 0 10 ^3/uL (0-0.2); Basophils % (auto) 0.3 % (0.0-2.0); Eosinophils # (auto) 0.1 10 ^3/uL (0-0.8); Hematocrit 38.5 % (41.0-53.0); Hemoglobin 13.2 g/dL (13.5-17.5); Lymphocytes # (auto) 1.4 10 ^3/uL (0.4-5.4); Mean Corpuscular Hgb Conc. 34.3 g/dL (32.0-36.0); Mean Corpuscular Volume 90.4 fL (80.0-100.0); Monocytes # (auto) 0.7 10 ^3/uL (0-1.3); Monocytes % (auto) 10.3 % (0.0-12.0); Neutrophils % (auto) 68.4 % (37.0-80.0); Nucleated Red Blood Cells % 0.3 %; Platelet Count (auto) 164 10^3/uL (140-450); Red Blood Cells 4.26 10^6/uL (4.5-5.90); Red Cell Distribution Width 13.5 % (11.8-14.3); White Blood Cell 7.3 10^3/uL (4.4-10.8)
[2025-04-02 06:18] LABS: Potassium 3.9 mmol/L (3.5-5.1); Sodium 145 mmol/L (136-145)
[2025-04-02 06:19] LABS: Anion Gap 8 (5-15); Carbon Dioxide 24 mmol/L (20-31)
[2025-04-02 06:20] LABS: Calcium 9.7 mg/dL (8.7-10.4)
[2025-04-02 06:24] LABS: BUN/Creatinine Ratio 12.1 (10.0-20.0); Blood Urea Nitrogen 11 mg/dL (9-23); Glucose 96 mg/dL (74-106)
[2025-04-02 06:25] LABS: Chloride 113 mmol/L (98-107)
[2025-04-02 09:00] VITALS: BP 105/66; PULSE 86; RESP 17; TEMP 97.5; O2SAT 96
[2025-04-02 13:00] VITALS: BP 92/51; PULSE 64; RESP 17; TEMP 97; O2SAT 97
[2025-04-02 17:00] VITALS: BP 116/77; PULSE 60; RESP 17; TEMP 98.8; O2SAT 96
--- NOTE | 2025-04-02 19:02 | DVHPNRES ---
Progress Note Date Seen: Apr 02, 2025 Resident Creating Document: JOHN RAZA RESIDENT Medical Necessity Reason Pt with a Central, PICC or Fol: No Subjective Review of Systems Patient seen and examined at bedside Restrained removed No active agitation, following commands No active symptoms Able to eat. Regular bowel and bladder. Objective vital signs Vital Sign Date Time Temp Pulse Resp B/P (MAP) Pulse Ox O2 Delivery O2 Flow Rate FiO2 04/02/25 17:00 98.8 60 17 116/77 (90) 96 98.8 04/02/25 07:30 Room Air* 0 21 Total Intake and Output 04/01/25 04/01/25 04/02/25 15:00 23:00 07:00 Intake Total 105 ml 805 ml 480 ml Output Total 1700 ml 1390 ml Balance 105 ml -895 ml -910 ml medications Current Medications Medications Dose Ordered Sig/Marie Route Start Time Stop Time Status Last Admin Dose Admin Sodium Chloride 10 ml Q8HR IV 03/28/25 22:00 04/02/25 05:35 10 ML Enoxaparin Sodium 40 mg DAILY SC 03/29/25 10:00 04/02/25 09:11 40 MG Acetaminophen 650 mg Q6HP PRN PO 03/28/25 21:00 Atorvastatin Calcium 20 mg HS PO 03/29/25 22:00 04/01/25 19:12 20 MG Haloperidol Lactate 2.5 mg Q6HP PRN IM 03/30/25 12:30 03/31/25 21:09 2.5 MG Losartan Potassium 50 mg DAILY PO 03/31/25 10:00 04/02/25 09:08 50 MG Amlodipine Besylate 5 mg DAILY PO 03/31/25 10:00 04/02/25 09:11 5 MG Hydralazine HCl 10 mg Q6HP PRN IV 03/31/25 12:00 Quetiapine Fumarate 50 mg HS PO 03/31/25 22:00 04/01/25 19:12 50 MG Examination General Appearance: Cooperative. Well developed. Well nourished. NAD Head Exam: Normal inspection Neck Exam: Normal inspection. Non-tender. Normal alignment Pulmonary/Respiratory: Chest non-tender. Clear bilateral breath sounds Cardiovascular/Chest: Regular rate and rhythm. No murmurs. No JVD. Peripheral Pulses: 2+ Radial (R). 2+ Radial (L). 2+ Pedal (R). 2+ Pedal (L) Abdominal Exam: Normal bowel sounds. Soft. Nontender. No hepatosplenomegaly. No masses Ankle Exam: Negative ankle edema Lower extremities: Negative lower extremity edema Neuro/Mental Status: A&O x4. Coherent, right eye ptosis Thoughts/Psych: Normal thought pattern. Appropriate mood and affect. Good judgement and insight Appearance: In no acute distress Skin Exam: Normal inspection. Normal color. Warm. Dry laboratory and microbiology Laboratory Tests 04/02/25 04:50 Test 04/02/25 04:50 Range/Units Serum Glucose 96 74-106 mg/dL Microbiology Date/Time Source Procedure Growth Status 03/30/25 15:15 Voided Urine Urine Culture - Final Complete 03/29/25 17:31 Nose MRSA Screen - Final Complete Labs and/or images reviewed: Labs reviewed by me, Image(s) reviewed by me Problem List/Assessment/Plan Problem List/Assessment/Plan Syncope likely vasovagal ? Rule out neurological/cardiac cause Heat exhaustion SIRS likely due to above - head CT showed no acute intracranial abnormality - MRI brain showed no acute intracranial process - carotid Doppler showed no hemodynamically significant stenosis of the bilateral carotid systems - patient given IV fluids Acute metabolic encephalopathy likely due to heat exhaustion - resolved; restraints removed Possible delirium with underlying Alzheimer's disease Possible myasthenia gravis - patient is following up with the neurologist in the outpatient clinic - ptosis of the right eye with the patient being on pyridostigmine - IV fluids - Seroquel at night and Haldol 2.5 mg q.6 p.r.n. 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 the patient is not able to take oral - on atorvastatin DVT prophylaxis: Enoxaparin Goals of care discussed with the patient for 20 minutes; full code Plan discussed with Dr. Grissom Plan discussed with: Patient, Other (RN) Addendum Addendum Addendum I was physically present for the chowdhury portions of the service provided to patient by THE RESIDENT. I have reviewed the documentation, discussed the case with resident and agree with the resident's documentation except as noted. Also the patient's clinical case was discussed with the patient's nurse. This medical document was created using an electronic medical record system with computerized dictation system. Although this document has been carefully reviewed, there might still be some phonetic and typographical errors. These areas are purely typographical due to imperfections of the software programs, and do not reflect any compromise in the patient's medical care. Late signature. Date of Service: Apr 02, 2025 Billing Provider: KHARI GRISSOM MD Common Visit Codes: [id number] INP/OBS CARE(HIGH) Secondary Visit Codes: [id number] CARE PLAN 30 MINUTES (20 minutes) JOHN RAZA RESIDENT Apr 02, 2025 19:02 KHARI GRISSOM MD Apr 03, 2025 05:37
[2025-04-02 20:00] VITALS: PULSE 81
[2025-04-02 20:55] VITALS: BP 126/75; PULSE 60; RESP 19; TEMP 99; O2SAT 95
[2025-04-03 01:00] VITALS: BP 130/77; PULSE 63; RESP 18; TEMP 98.8; O2SAT 96
[2025-04-03 06:54] LABS: Basophils # (auto) 0 10 ^3/uL (0-0.2); Basophils % (auto) 0.3 % (0.0-2.0); Eosinophils # (auto) 0.1 10 ^3/uL (0-0.8); Eosinophils % (auto) 1.8 % (0.0-7.0); Hematocrit 40.5 % (41.0-53.0); Hemoglobin 13.5 g/dL (13.5-17.5); Lymphocytes # (auto) 1.5 10 ^3/uL (0.4-5.4); Lymphocytes % (auto) 21.2 % (10.0-50.0); Mean Corpuscular Hgb Conc. 33.4 g/dL (32.0-36.0); Mean Corpuscular Volume 92.7 fL (80.0-100.0); Monocytes # (auto) 0.6 10 ^3/uL (0-1.3); Monocytes % (auto) 8.9 % (0.0-12.0); Neutrophils # (auto) 4.8 10 ^3/uL (1.6-8.6); Neutrophils % (auto) 67.8 % (37.0-80.0); Nucleated Red Blood Cells % 0.1 %; Platelet Count (auto) 174 10^3/uL (140-450); Red Blood Cells 4.37 10^6/uL (4.5-5.90); Red Cell Distribution Width 13.6 % (11.8-14.3); White Blood Cell 7.1 10^3/uL (4.4-10.8)
[2025-04-03 08:00] VITALS: PULSE 63; PULSE 78; RESP 18; O2SAT 96
--- NOTE | 2025-04-03 08:19 | ECG ---
[facility] Test Date: 2025-04-03 Test Time: 05:35:46 Pat Name: ARIEL MARTE Department: Room: 0278T A Gender: M Grinder: TONO : 1955 Requested By: ALFRED MELCHOR Order Number: [id number] Reading MD: Zander Rome Measurements Intervals [place] Rate: 76 P: 32 MD: 156 QRS: -32 QRSD: 83 T: 39 QT: 386 QTc: 435 Interpretive Statements Sinus rhythm Abnormal R-wave progression, late transition Inferior infarct, old Electronically Signed On 04-05-2025 14:40:08 PDT by Zander Rome Please click the below link to view image of tracing.
[2025-04-03 08:54] VITALS: BP 108/64; PULSE 85; RESP 18; TEMP 97.2; O2SAT 96
[2025-04-03 12:08] VITALS: BP 108/64; PULSE 85; RESP 18; TEMP 97.2; O2SAT 96
[2025-04-03 12:35] VITALS: BP 119/78; PULSE 70; RESP 17; TEMP 97.7; O2SAT 96
[2025-04-03] MEDS ORDERED: ACET-1079 PO (13:25)
--- NOTE | 2025-04-03 16:41 | DVHDSRES ---
Discharge Summary Date of Admission Resident Creating Document: JOHN RAZA RESIDENT March 28, 2025 at 20:54 Date of Discharge: Apr 03, 2025 Admitting Diagnosis syncope Labs/Diagnostic Data: Laboratory Results Test 04/03/25 05:04 04/02/25 04:50 04/01/25 09:24 03/29/25 10:00 White Blood Count 7.1 10^3/uL (4.4-10.8) Red Blood Count 4.37 10^6/uL (4.5-5.90) Hemoglobin 13.5 g/dL (13.5-17.5) Hematocrit 40.5 % (41.0-53.0) Mean Corpuscular Volume 92.7 fL (80.0-100.0) Mean Corpuscular Hemoglobin 31.0 pg (28.0-32.0) Mean Corpuscular Hemoglobin Concent 33.4 g/dL (32.0-36.0) Red Cell Distribution Width 13.6 % (11.8-14.3) Platelet Count 174 10^3/uL (140-450) Mean Platelet Volume 8.8 fL (6.9-10.8) Neutrophils (%) (Auto) 67.8 % (37.0-80.0) Lymphocytes (%) (Auto) 21.2 % (10.0-50.0) Monocytes (%) (Auto) 8.9 % (0.0-12.0) Eosinophils (%) (Auto) 1.8 % (0.0-7.0) Basophils (%) (Auto) 0.3 % (0.0-2.0) Neutrophils # (Auto) 4.8 10 ^3/uL (1.6-8.6) Lymphocytes # (Auto) 1.5 10 ^3/uL (0.4-5.4) Monocytes # (Auto) 0.6 10 ^3/uL (0-1.3) Eosinophils # (Auto) 0.1 10 ^3/uL (0-0.8) Basophils # (Auto) 0 10 ^3/uL (0-0.2) Nucleated Red Blood Cells 0.1 % Sodium Level 145 mmol/L (136-145) Potassium Level 3.9 mmol/L (3.5-5.1) Chloride Level 113 mmol/L (98-107) Carbon Dioxide Level 24 mmol/L (20-31) Anion Gap 8 (5-15) Blood Urea Nitrogen 11 mg/dL (9-23) Creatinine 0.91 mg/dL (0.700-1.30) Glomerular Filtration Rate Calc 90 mL/min (>90) BUN/Creatinine Ratio 12.1 (10.0-20.0) Serum Glucose 96 mg/dL (74-106) Calcium Level 9.7 mg/dL (8.7-10.4) Phosphorus Level 4.2 mg/dL (2.4-5.1) Ammonia 24 umol/L (11-32) Test 03/29/25 05:30 03/28/25 21:12 03/28/25 20:30 03/28/25 17:23 Total Bilirubin 0.7 mg/dL (0.2-1.0) Aspartate Amino Transferase (AST) 27 U/L (13-40) Alanine Aminotransferase (ALT) 33 U/L (7-40) Alkaline Phosphatase 80 U/L (46-116) Creatine Kinase 149 U/L (46-171) Total Protein 5.8 g/dL (5.7-8.2) Albumin 3.9 g/dL (3.2-4.8) Magnesium Level 2.2 mg/dL (1.6-2.6) Plasma/Serum Blood Alcohol < 3.0 mg/dL (<10) Urine Color Yellow (Yellow) Urine Clarity Clear (Clear) Urine pH 6.0 (5.0-9.0) Urine Specific [place] 1.024 (1.001-1.035) Urine Protein 1+ (Negative) Urine Ketones Trace (Negative) Urine Blood Negative /uL (Negative) Urine Nitrite Negative (Negative) Urine Bilirubin Negative (Negative) Urine Urobilinogen 3 mg/dL (Negative) Urine Leukocyte Esterase Negative /uL (Negative) Urine RBC 3 /hpf (0 - 3) Urine Microscopic WBC 3 /HPF (0-3) Urine Squamous Epithelial Cells Few /hpf (<5) Urine Bacteria Few /hpf (None Seen) Urine Hyaline Casts Mod /lpf (0 - 2) Urine Mucus Few (None Seen) Urine Creatinine 302.29 mg/dL (30.0-125.0) Urine Protein/Creatinine Ratio 0.12 Urine Sodium 49 mmol/L (40-220) Urine Glucose Normal mg/dL (Normal) Urine Total Protein 37.5 mg/dL (1-14) Urine Opiates Screen Neg (NEGATIVE) Urine Fentanyl Screen Neg (NEGATIVE) Urine Barbiturates Screen Neg (NEGATIVE) Urine Phencyclidine Screen Neg (NEGATIVE) Urine Amphetamines Screen Neg (NEGATIVE) Urine Benzodiazepines Screen Neg (NEGATIVE) Urine Cocaine Screen Neg (NEGATIVE) Urine Cannabinoids Screen Neg (NEGATIVE) Hemoglobin A1c 5.2 % A1C (<5.7) Creatine Kinase MB 1.7 ng/mL (0.0-10.4) Vitamin B12 Level 465 pg/mL (211-911) Folic Acid 18.89 ng/mL (>5.38) Thyroid Stimulating Hormone (TSH) 1.85 uIU/mL (0.55-4.78) Other Laboratory Tests 04/03/25 05:04 04/02/25 04:50 Brief Hx & Hospital Course: Patient was found lying down in a neighbor's driveway, hypotensive with SBP in the 80s. Brought in by EMS. Family reported increasing forgetfulness and inability to return safely home. Hospital Course: 69-year-old male with PMHx of prostate carcinoma s/p prostatectomy, HTN, hyperlipidemia, and possible underlying Alzheimer's, presented after syncopal episode. He was noted to have hypotension likely secondary to heat exhaustion and dehydration. Initial labs showed leukocytosis, hyperkalemia, and ARZ with elevated creatinine and BUN, likely due to volume depletion. CT head, chest, abdomen, and pelvis were negative. MRI brain and carotid Doppler were also unrevealing for acute pathology. RAZ and hypernatremia resolved with IV fluids. He was monitored for encephalopathy and delirium, possibly multifactorial due to heat, early dementia, or myasthenia gravis. He had no signs of ongoing infection. Delirium and agitation improved during hospitalization; restraints were removed. Patient was stabilized and medically optimized for discharge. Condition at Discharge: Stable. At neurological baseline. Alert, oriented to person and time. Agitation resolved. Ambulatory with assistance. Discharge Plan: Discharge to Assisted Living Facility Resume home medications Follow-up with neurology outpatient for further workup of right eye ptosis and MG concern Follow-up with PCP and urology as needed Goals of care were discussed; patient remains Full Code Education provided to patients brother Emmanuel Sharif, who is primary support person Case discussed with Dr Philip Full code Operations or Procedures EXAMINATION: MRI BRAIN HEAD WO CONTRAST INDICATION: Rule out acute stroke COMPARISON: CT head 03/28/2025 TECHNIQUE: Multiplanar, multisequence magnetic resonance imaging of the brain was performed without the use of intravenous contrast. FINDINGS: There is no restricted diffusion. There are minimal scattered chronic small- vessel ischemic changes in the supratentorial white matter. There is no evidence of hemorrhage, mass, mass effect or midline shift. There is no hydrocephalus or extra-axial fluid collection. The visualized intracranial vasculature demonstrates appropriate flow-voids. The sagittal midline structures appear unremarkable. The craniocervical junction is within normal limits. The calvarium demonstrates normal marrow signal. The paranasal sinuses and mastoid air cells are clear. IMPRESSION: 1. There is no acute intracranial process. Condition at Discharge: Stable Final Diagnosis/Problems List Syncope likely vasovagal ? Rule out neurological/cardiac cause Heat exhaustion SIRS likely due to above Acute metabolic encephalopathy likely due to heat exhaustion - resolved; restraints removed Possible delirium with underlying Alzheimer's disease Possible myasthenia gravis RAZ on CKD likely due to be VMN: Resolved Hypernatremia Hypertensive heart disease H/o Hyperlipidemia Discharge Disposition: Home Discharge Instruct/Medications Diet: Cardiac 2g Na,low cholest Activity: Light activity Follow Up/Referral: [facility] Medications: see prescription Discharge Statement: "Patient was advised to return to the ER or call 911 if any headaches, dizziness, shortness of breath, chest pain, abdominal pain, bleeding, fevers, or worsening of medical condition. Patient was counseled about treatment plan, medications, possible side effects, patientverbalized understanding. All questions were answered to the best of my ability. This discharge took greater then 30 minutes in planning, reviewing documentation, counseling the patient, and discussing with other team members." ASSESSMENT ASSESSMENT Assessment syncope dementia Date of Service: Apr 03, 2025 Billing Provider: GAVIN PHILIP MD Common Visit Codes: 78294-PMP/OBS DISCH DAY >30min KENN SOLIS RESIDENT Apr 03, 2025 16:41 GAVIN PHILIP MD Apr 04, 2025 09:25
== END 2025-04-03 13:30 | disposition home or self-care (01) | DRG 312 ==
LOC: EDBD 16:47 → ER 16:47 → OVERFLOW 20:54 → TELE-WESTW 03-29 16:47
PROVIDERS: ADMIT Student in an Organized Health Care Education/Training Program; ATTEND Student in an Organized Health Care Education/Training Program
DX: R55 Syncope and collapse (principal); G93.41 Metabolic encephalopathy; N17.0 Acute kidney failure with tubular necrosis; R65.10 Systemic inflammatory response syndrome (SIRS) of non-infectious origin without acute organ dysfunction; E87.0 Hyperosmolality and hypernatremia; E86.0 Dehydration; T67.5XXA Heat exhaustion, unspecified, initial encounter; N18.9 Chronic kidney disease, unspecified; D72.829 Elevated white blood cell count, unspecified; F03.90 Unspecified dementia, unspecified severity, without behavioral disturbance, psychotic disturbance, mood disturbance, and anxiety; Z90.79 Acquired absence of other genital organ(s); Z82.0 Family history of epilepsy and other diseases of the nervous system; Z85.46 Personal history of malignant neoplasm of prostate; X30.XXXA Exposure to excessive natural heat, initial encounter; Z79.899 Other long term (current) drug therapy; I13.10 Hypertensive heart and chronic kidney disease without heart failure, with stage 1 through stage 4 chronic kidney disease, or unspecified chronic kidney disease; G70.00 Myasthenia gravis without (acute) exacerbation
CPT/HCPCS: 36415; 70450; 70551; 71045; 73070; 80048; 80053; 80307; 80320; 81001; 82140; 82550; 82553; 82570; 82607; 82746; 83036; 83735; 84100; 84156; 84300; 84443; 85025; 87081; 87086; 93005; 93306; 93886; 94640; 96360; 99291; A4565; G0378